=== PATIENT | female | born 1965 | race Two or more races ===

== ENCOUNTER 2020-07-29 11:17 | Inpatient (IN) | payer MEDICAID, OTHER ==
[2020-07-29] VITALS (23 sets, daily range): BP systolic 65–98; BP diastolic 30–58
[~2020-07-29] VITALS: Ht 157.5 cm; Wt 107.8 kg
[2020-07-29] MEDS ORDERED: MIDAZOLAM DRIP 50 mg/50mL 50 ML IV ONE (11:44)
[2020-07-29] MEDS: MIDAZOLAM DRIP 50 mg/50mL 50 ML IV SCH (11:48)
[2020-07-29 12:16] LABS: Urine Amorphous Crystal FEW /hpf (None Seen); Urine Bacteria FEW /hpf (None Seen); Urine Blood TRACE /uL (Negative); Urine Hyaline Cast MANY /lpf (0 - 2); Urine Mucus FEW (None Seen); Urine Specific Gravity 1.021 (1.001-1.035); Urine WBC 32 /hpf (0 - 5); Urine WBC Clumps PRESENT /hpf (None Seen)
[2020-07-29 12:20] LABS: Amphetamine Screen, Urine NEGATIVE (NEGATIVE); Barbiturate Scree,Urine NEGATIVE (NEGATIVE); Benzodiazephine Screen, Urine NEGATIVE (NEGATIVE); Cannabinoid Screen, Urine NEGATIVE (NEGATIVE); Cocaine Screen, Urine NEGATIVE (NEGATIVE); Phencyclidine Screen, Urine NEGATIVE (NEGATIVE)
[2020-07-29] MEDS: fentaNYL Drip 2500mCg/250mlNS 250 ML IV SCH (12:22)
[2020-07-29 12:27] LABS: Opiate Scree,Urine POSITIVE (NEGATIVE)
[2020-07-29] MEDS ORDERED: NOREPINEPHRINE 8 MG/250ML KIT 250 ML IV ONE (12:43)
[2020-07-29] MEDS: NOREPINEPHRINE 8 MG/250ML KIT 250 ML IV SCH (12:52)
[2020-07-29 13:58] LABS: Hematocrit 45.5 % (36.0-46.0); Mean Corpuscular Hemoglobin 31.5 pg (28.0-32.0); Mean Corpuscular Volume 95.5 fL (80.0-100.0); Platelet Count (auto) 161 10^3/uL (140-450); Red Blood Cells 4.77 10^6/uL (4.0-5.20); Red Cell Distribution Width 16.5 % (11.8-14.3); White Blood Cell 12.9 10^3/uL (4.4-10.8)
[2020-07-29 14:07] LABS: Basophils % (manual) 0 (0.0-2.0); Blast Cells 0; Eosinophils % (manual) 0 (0-7); Myelocytes % 0; Promyelocytes % 0; Reactive Lymphocytes 0
[2020-07-29 14:22] LABS: Albumin 2.8 g/dL (3.4-5.0); Anion Gap 14 (5-15); BUN/Creatinine Ratio 11.9; Blood Alcohol < 3.0 mg/dL (0-5); Blood Urea Nitrogen 57 mg/dL (7-18); Calcium 6.8 mg/dL (8.5-10.1); Carbon Dioxide 22 mmol/L (21-32); Chloride 101 mmol/L (98-107); GFR African American 12 mL/min; GFR Non-African American 10 mL/min; Glucose 96 mg/dL (74-106); Sodium 137 mmol/L (136-145)
[2020-07-29 14:24] LABS: Lactic Acid w/Reflex 4.3 mmol/L (0.4-2.0)
[2020-07-29 14:30] LABS: Acetaminophen 2.1 ug/mL (10-30); Salicylate < 1.7 mg/dL (2.8-20.0)
[2020-07-29 14:42] LABS: Potassium 5.8 mmol/L (3.5-5.1)
[2020-07-29 14:44] LABS: Band Neutrophils % (manual) 27; Lymphocytes % (manual) 8 (10.0-50.0); Metamyelocytes % 5; Monocytes % (manual) 5 (0-12)
[2020-07-29] MEDS ORDERED: CALCIUM GLUC 4.65meq/50ml D5AE 50 ML IV ONE (14:45)
[2020-07-29] MEDS ORDERED: SODIUM BICARBONATE 8.4% INJ 50ML SYRINGE IV ONE (14:45)
[2020-07-29] MEDS ORDERED: DEXTROSE (50%) 50ML SYRG IV ONE (14:45)
[2020-07-29] MEDS ORDERED: InsuLIN REG 1unit/0.01ml Soln (100units/ml) IV ONE (14:45)
[2020-07-29 14:48] LABS: Alanine Aminotransferase 8345 U/L (13-56); Alkaline Phosphatase 158 U/L (45-117); Aspartate Aminotransferase 16655 U/L (15-37); Bilirubin, Total 1.2 mg/dL (0.2-1.0); Total Protein 6.5 g/dL (6.4-8.2)
[2020-07-29] MEDS ORDERED: ENOXAPARIN SOD 100 MG/1 ML SYRINGE SC ONE (15:15)
[2020-07-29 15:57] LABS: INR 1.2 (0.9-1.15)
[2020-07-29] MEDS ORDERED: levoFLOXacin 750MG 150 ML IV ONE (16:45)
--- NOTE | 2020-07-29 17:14 | NUR ---
PICC line placement Patient/Patient significant other educated on need for PICC line placement. All risks and benefits explained and all questions and concerns addressed prior to procedure. Noted past medical history and allergies with no contraindications. INR and Plt counts within acceptable range. 5 fr PICC line inserted via RIGHT BASILIC vein using [employer] US and Tip Location System. Sterile technique with maximum barrier precautions utilized. Blood return obtained from each of THE THREE lumens and each flushed easily with NS using proper technique. 5F PICC secured with Stat-lock; biodisc and occlusive dressing applied. Stat portable chest x-ray obtained for PICC tip placement. *Baseline Arm Circumference 33CM. INTERNAL LENGTH 41 CM, EXTERNAL LENGTH 0CM. PICC lot # [id number]. Note:
--- NOTE | 2020-07-29 17:15 | NUR ---
OK to use PICC line Xray completed. OK to use PICC line . PRIMARY RN NOTIFIED
[2020-07-29] MEDS ORDERED: LIDOCAINE 1% (LOCAL ANESTH.) PF 5ml SDV ID ONE (17:30)
[2020-07-29] MEDS ORDERED: MORPHINE SULF INJ 2 MG/ML SYRINGE 1ML IV PRN (17:30)
[2020-07-29] MEDS ORDERED: NITROGLYCERIN 0.4 MG SL TAB SL PRN (17:30)
--- NOTE | 2020-07-29 18:15 | NUR ---
RECEIVED REPORT FROM ED RN
--- NOTE | 2020-07-29 18:25 | NUR ---
SPOKE WITH MD KOVACS UPDATED ON PATIENT STATUS, NEW ORDERS RECEIVED AND VENT MODE CHANGED
--- NOTE | 2020-07-29 18:55 | NUR ---
Admit to ICU from ER on vent NAT HARRELL admitted to ICU via gurney on environmental monitoring specialist, intubated and being bagged by Respiratory Therapist. Patient transfered to bed, connected to mechanical ventilator by therapist, ALMAZ at bedside. Patient connected to ICU monitoring, weighed by ronnie, oriented to Blaze Powell, primary RN, unit, ventilator and sedation.
--- NOTE | 2020-07-29 19:07 | NUR ---
received call from md mcdonald updated on patient status. new orders received
--- NOTE | 2020-07-29 19:30 | NUR ---
PLACED PAGE FOR HOSPITALIST BP 85/45 MAXED ON LEVOPHED
[2020-07-29] MEDS ORDERED: VASOPRESSIN 50 UNITS in D5W 5% 247.5 ML IV SCH (20:00)
[2020-07-29] MEDS: PHENYLEPHRINE IV 250 ML IV SCH (20:00)
--- NOTE | 2020-07-29 20:00 | NUR ---
SPOKE WITH MD KOVACS RECEIVED ORDERS FOR VASO AND JESENIA. START VASO FIRST PER
[2020-07-29] MEDS ORDERED: VASOPRESSIN 20 UNIT/ML ONE (20:03)
[2020-07-29] MEDS ORDERED: ALBUMIN 5% 250 ML IV ONE (20:30)
--- NOTE | 2020-07-29 20:37 | NUR ---
CHEPE EDDY WALKED TO LAB BY JOGRE LAINEZ
[2020-07-29] MEDS: SODIUM CHLOR 0.9% PF (SALINE LOCK) 10ML VIAL/SYR IV SCH (22:00)
[2020-07-29] MEDS: PANTOPRAZOLE 40mg/50ML NS AE 50 ML IV SCH ×2 (22:30→23:00)
[2020-07-29] MEDS ORDERED: ACETAMINOPHEN 650 mg PER 20.3 mL UD GT PRN (23:45)
[2020-07-30] VITALS (90 sets, daily range): BP systolic 82–117; BP diastolic 31–78
[2020-07-30] MEDS ORDERED: SODIUM BICARBONATE 8.4 % INJ 50ML VIAL IV ONE ×2 (00:15)
[2020-07-30] MEDS: SODIUM BICARBONATE 50ML VIAL 150 ML in SOD CHL 0.45% 1,000 ML IV SCH ×2 (00:15→16:48)
[2020-07-30] MEDS ORDERED: VASOPRESSIN 20 UNIT/ML ONE ×4 (00:32→01:37)
[2020-07-30] MEDS ORDERED: SODIUM BICARBONATE 8.4% INJ 50ML SYRINGE ONE (00:40)
[2020-07-30] MEDS ORDERED: ALBUMIN 25% 100 ML IV SCH (02:00)
[2020-07-30] MEDS: ALBUMIN 25% 100 ML IV SCH ×3 (04:00→10:03)
[2020-07-30] MEDS: PANTOPRAZOLE 40mg/50ML NS AE 50 ML IV SCH ×5 (04:00→23:53)
[2020-07-30 04:03] LABS: Basophils # (auto) 0 10 ^3/uL (0-0.2); Basophils % (auto) 0.2 % (0.0-2.0); Eosinophils # (auto) 0.8 10 ^3/uL (0-0.8); Eosinophils % (auto) 7.2 % (0.0-7.0); Hematocrit 44.1 % (36.0-46.0); Lymphocytes # (auto) 0.8 10 ^3/uL (0.4-5.4); Lymphocytes % (auto) 6.9 % (10.0-50.0); Mean Corpuscular Hemoglobin 30.9 pg (28.0-32.0); Mean Corpuscular Hgb Conc. 31.7 g/dL (32.0-36.0); Mean Corpuscular Volume 97.2 fL (80.0-100.0); Monocytes # (auto) 0.3 10 ^3/uL (0-1.3); Monocytes % (auto) 2.5 % (0.0-12.0); Neutrophils # (auto) 9.5 10 ^3/uL (1.6-8.6); Neutrophils % (auto) 83.2 % (37.0-80.0); Nucleated Red Blood Cells % 1.4 %; Platelet Count (auto) 125 10^3/uL (140-450); Red Blood Cells 4.53 10^6/uL (4.0-5.20); Red Cell Distribution Width 16.6 % (11.8-14.3); White Blood Cell 11.4 10^3/uL (4.4-10.8)
[2020-07-30] MEDS: PHENYLEPHRINE IV 250 ML IV SCH (04:20)
[2020-07-30 04:35] LABS: Albumin 2.3 g/dL (3.4-5.0); BUN/Creatinine Ratio 12.9; Bilirubin, Total 2.6 mg/dL (0.2-1.0); Calcium 6.2 mg/dL (8.5-10.1); Magnesium 2.9 mg/dL (1.6-2.6); Total Protein 5.6 g/dL (6.4-8.2)
[2020-07-30 04:50] LABS: Potassium 5.9 mmol/L (3.5-5.1)
[2020-07-30] MEDS: ALBUTEROL SULF 2.5 MG/0.5ML(0.5%) NEB SOLN NEB SCH ×5 (06:18→22:20)
--- NOTE | 2020-07-30 07:15 | NUR ---
opening note recieved report from night time babysitter rn. patient intubated sedated on versed and fent. tolerating ventilator. stating >95% on bedside monitor. hr 92 with bp 105/60 on vasopressin/esophageal vacancies rate, and norepinephrine, both maxed out. right upper arm picc line intact transfusing all medications. cooling measures in place. left ngt to suction, draining coffee ground emesis. villafana patent to gravity. for gtts and their titrations see interventions. for more information see interventions. all fall and safety precautions in place.
[2020-07-30] MEDS: VASOPRESSIN 50 UNITS in D5W 5% 247.5 ML IV SCH ×6 (07:59→21:40)
[2020-07-30] MEDS ORDERED: PHENYLEPHRINE HCL 10 MG/ML VL ONE (08:07)
[2020-07-30] MEDS: PHENYLEPHRINE INJ 40 MG in SODIUM CHL 0.9% 250 ML IV SCH ×2 (08:30→21:42)
--- NOTE | 2020-07-30 08:38 | NUR ---
md delgado at bedside updated on patient status new orders received
[2020-07-30] MEDS ORDERED: cefTRIAXone 1GM/50ML D5W 50 ML IV SCH (09:00)
--- NOTE | 2020-07-30 09:17 | NUR ---
Abnormal Abg paged fire support specialist awaiting call back. left voice mail. awaiting call back
--- NOTE | 2020-07-30 09:23 | NUR ---
received phone call from md domínguez updated on abg, no new orders received
[2020-07-30] MEDS ORDERED: PIPERACILLIN-TAZOB 3.375GM 100 ML IV SCH (10:00)
[2020-07-30] MEDS ORDERED: AZITHROMYCIN 500MG/ 250ML 250 ML IV SCH (10:00)
[2020-07-30] MEDS: SODIUM CHLOR 0.9% PF (SALINE LOCK) 10ML VIAL/SYR IV SCH ×2 (10:03→21:41)
--- NOTE | 2020-07-30 10:30 | NUR ---
md gallego at bedside updated on patient status. no new orders received
--- NOTE | 2020-07-30 10:54 | NUR ---
called family received correct password. updated on patient status. request to visit patient at bedside.
--- NOTE | 2020-07-30 11:50 | NUR ---
WOUND CARE NOTE: WOUND CARE IN TO SEE PATIENT AT THIS TIME PER WOUND CARE REQUEST. PATIENT ADMITTED TO [facility] FOR ACUTE RESPIRATORY FAILURE, GI BLEED, ELEVATED LIVER ENZYMES, AND ACUTE RENAL FAILURE. PATIENT IS INTUBATED AND SEDATED. PATIENT IS ON AN ICU LOW AIR LOSS BED. BEDSIDE NURSE NOTED SKIN INTEGRITY ISSUE UPON ADMISSION. PHOTOGRAPH TAKEN AT THAT TIME FOR REFERENCE. PATIENT ANGIE SCORE IS 10. PATIENT NOTED TO HAVE INTERTRIGINOUS RASH TO ABDOMINAL PANNUS AND BILATERAL UPPER THIGHS. ZGUARD MOISTURE BARRIER CREAM APPLIED TO AFFECTED AREAS. RECOMMEND: FREQUENT Q2HOUR REPOSITIONING CONDITION PERMITS. REDISTRIBUTE PRESSURE UTILIZING PILLOWS AND WEDGES. BID/PRN APPLICATION OF MOISTURE BARRIER CREAM. SKIN/WOUND CARE PLAN. CONTINUED MONITORING BY WOUND CARE TEAM. Addendum: 07/30/20 at 1250 by ALEXIS BLAKE RN RN Amended: Links added.
[2020-07-30] MEDS ORDERED: DEXTROSE (50%) 50ML SYRG IV PRN (12:00)
[2020-07-30] MEDS: MIDAZOLAM DRIP 50 mg/50mL 50 ML IV SCH ×2 (12:01→18:58)
[2020-07-30] MEDS: LINEZOLID 600MG/300ML 300 ML IV SCH ×2 (12:20→23:59)
[2020-07-30] MEDS: InsuLIN REG 1unit/0.01ml Soln (100units/ml) SC SCH ×2 (12:21→18:11)
[2020-07-30] MEDS: ACCU-CHEK COMFORT CURVE STRIP VI SCH ×2 (12:21→18:11)
--- NOTE | 2020-07-30 13:46 | NUR ---
md winchester at bedside updated on patient status, and abg's, no new orders received
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
--- NOTE | 2020-07-30 15:41 | NUR ---
vasopressin currently out waiting for pharmacy
[2020-07-30] MEDS ORDERED: EPINEPHrine HCL 250 ML IV ONE (15:51)
[2020-07-30] MEDS: EPINEPHrine HCL 250 ML IV SCH ×2 (16:00→20:00)
[2020-07-30] MEDS: fentaNYL Drip 2500mCg/250mlNS 250 ML IV SCH (16:44)
[2020-07-30] MEDS: NOREPINEPHRINE 8 MG/250ML KIT 250 ML IV SCH ×2 (16:48→22:32)
--- NOTE | 2020-07-30 17:05 | NUR ---
critical lab value placed page for teacher of the sight impaired for elevated trop
--- NOTE | 2020-07-30 17:22 | NUR ---
received call back from md dias updated on critical lab, no new order received.
--- NOTE | 2020-07-30 17:51 | NUR ---
code status spoke with slot manager cindi and family. patient became chemical code status with no chest compressions, no new medications, no shock.
--- NOTE | 2020-07-30 18:57 | NUR ---
RECEIVED PT ON VENT V4, VENT CONNECTED TO RED OUTLET AND O2 SOURCE ALARMS ARE SET AND AUDIBLE. AMBU BAG AND MASK AT BEDSIDE. BS ARE FINE COURSE SXD VIA ETT FOR SMALL THICK ANGELES. MED [employer] [place] GIVEN INLINE WITHOUT ADVERSE REACTION NOTED. WILL CONTINUE TO MONITOR.
--- NOTE | 2020-07-30 19:30 | NUR ---
REPORT RECEIVED, ASSUMED CARE.
[2020-07-30] MEDS ORDERED: PIPERACILLIN-TAZOB 2.25GM 50 ML IV SCH (22:00)
[2020-07-31] VITALS (7 sets, daily range): BP systolic 87–107; BP diastolic 48–59
[2020-07-31] MEDS: InsuLIN REG 1unit/0.01ml Soln (100units/ml) SC SCH (00:01)
[2020-07-31] MEDS: ACCU-CHEK COMFORT CURVE STRIP VI SCH (00:01)
--- NOTE | 2020-07-31 00:28 | NUR ---
CALLBACK HOSPITALIST: GAVE UPDATE AND BLOOD SUGAR RESULTS, NO NEW ORDERS RECEIVED. WILL CONT TO MONITOR AND GIVE IN REPORT.
[2020-07-31] MEDS: VASOPRESSIN 50 UNITS in D5W 5% 247.5 ML IV SCH (00:49)
[2020-07-31] MEDS: PHENYLEPHRINE INJ 40 MG in SODIUM CHL 0.9% 250 ML IV SCH (00:50)
--- NOTE | 2020-07-31 01:43 | NUR ---
[facility]: SPEAKING TO GLADYS REGARDING PT, PT CODE 01:46, WILL CALLBACK.
--- NOTE | 2020-07-31 01:46 | NUR ---
PT ASYSTOLE, CODE BLUE CALLED. PT CHEM CODE.
--- NOTE | 2020-07-31 01:47 | NUR ---
EPINEPHRINE IVP GIVEN, PT STILL ASYSTOLE, ALL SEDATION STOPPED.
--- NOTE | 2020-07-31 01:49 | NUR ---
2ND EPINEPHRINE IVP GIVEN, NO CHANGE, PT STILL ASYSTOLE. PT CHEM CODE PER FAMILY WISHES. HOSPITALIST NOTIFIED.
--- NOTE | 2020-07-31 01:50 | NUR ---
DOPPLER USED, NO PULSE NOTED, PT STILL ASYSTOLE, CODE STOPPED, PT PRONOUNCED.
[2020-07-31] MEDS: ALBUTEROL SULF 2.5 MG/0.5ML(0.5%) NEB SOLN NEB SCH (02:00)
--- NOTE | 2020-07-31 02:01 | NUR ---
CALLED DAUGHTER NAT MIRAMONTES [phone], NO ANSWER, LEFT MESSAGE FOR CALLBACK.
--- NOTE | 2020-07-31 02:04 | NUR ---
[facility]: CASE #[id number]
--- NOTE | 2020-07-31 02:35 | NUR ---
CALLED [employer], [employer] OFFICE WILL NOTIFY THEM TO CALLBACK.
--- NOTE | 2020-07-31 02:41 | NUR ---
2ND CALL OUT TO DAUGHTER, NO ANSWER, 2ND MESSAGE LEFT, MARKED URGENT.
--- NOTE | 2020-07-31 02:47 | NUR ---
SUPERVISOR TELEPHONE INFORMATION SPOKE WITH IRMA MUKHERJEE, BODY RELEASED, NO CASE # ISSUED.
--- NOTE | 2020-07-31 03:10 | NUR ---
CALLED MD BRAUN EXCHANGE, LEFT MESSAGE WITH PT .
--- NOTE | 2020-07-31 04:05 | NUR ---
[facility] CALLBACK, FAMILY HAS BEEN NOTIFIED AND ARE ON THEIR WAY IN.
--- NOTE | 2020-07-31 04:40 | NUR ---
FAMILY HERE TO SEE THEIR LOVED ONE.
--- NOTE | 2020-07-31 05:21 | NUR ---
FAMILY PICKED MORTUARY ELI[facility], . CALLED MORTUARY, NO ANSWER, LEFT MESSAGE. WILL NOTIFY TL AND HOUSE SUP, WHEN FAMILY FINISHED VISITING THEIR LOVED ONE.
--- NOTE | 2020-07-31 05:24 | NUR ---
ALL PT BELONGINGS GIVEN TO RAJAN JOHNS AT BEDSIDE.
--- NOTE | 2020-07-31 05:49 | NUR ---
EXPLAINED TO FAMILY THAT THEIR LOVED WOULD HAVE TO PROBABLY GO TO OUR [place] UNTIL THE MORTUARY COULD BE CONTACTED. FAMILY RESPONDED WITH UNDERSTANDING AND COMPLIANCE.
--- NOTE | 2020-07-31 09:36 | NUR ---
CALL REC'D FROM ELIAS MARINO RELEASE TO BE FAXED AND OFFSET MACHINE OPERATOR TODAY
== END 2020-07-31 01:50 | disposition expired | DRG 720 ==
LOC: EDBD 11:17 → ER 11:17 → TELE 11:18 → ICU WEST 19:09
PROVIDERS: ADMIT Nurse Practitioner; ATTEND Nurse Practitioner
PROC: 5A1945Z Respiratory Ventilation, 24-96 Consecutive Hours (ICD-10-PCS; principal; 2020-07-29)
PROC: 0BH17EZ Insertion of Endotracheal Airway into Trachea, Via Natural or Artificial Opening (ICD-10-PCS; 2020-07-29)
PROC: 02HV33Z Insertion of Infusion Device into Superior Vena Cava, Percutaneous Approach (ICD-10-PCS; 2020-07-29)
DX: A41.9 Sepsis, unspecified organism (principal); J96.01 Acute respiratory failure with hypoxia; R65.21 Severe sepsis with septic shock; J96.02 Acute respiratory failure with hypercapnia; J18.9 Pneumonia, unspecified organism; I46.9 Cardiac arrest, cause unspecified; K27.4 Chronic or unspecified peptic ulcer, site unspecified, with hemorrhage; E87.5 Hyperkalemia; E66.01 Morbid (severe) obesity due to excess calories; N39.0 Urinary tract infection, site not specified; G82.20 Paraplegia, unspecified; Z20.828 Contact with and (suspected) exposure to other viral communicable diseases; D64.9 Anemia, unspecified; E11.22 Type 2 diabetes mellitus with diabetic chronic kidney disease; E83.41 Hypermagnesemia; F17.200 Nicotine dependence, unspecified, uncomplicated; G89.29 Other chronic pain; G95.9 Disease of spinal cord, unspecified; N17.9 Acute kidney failure, unspecified; E11.40 Type 2 diabetes mellitus with diabetic neuropathy, unspecified; R77.8 Other specified abnormalities of plasma proteins; I13.0 Hypertensive heart and chronic kidney disease with heart failure and stage 1 through stage 4 chronic kidney disease, or unspecified chronic kidney disease; I50.20 Unspecified systolic (congestive) heart failure; J44.0 Chronic obstructive pulmonary disease with (acute) lower respiratory infection; K75.89 Other specified inflammatory liver diseases; K92.0 Hematemesis; N18.9 Chronic kidney disease, unspecified; Z66 Do not resuscitate; Z82.49 Family history of ischemic heart disease and other diseases of the circulatory system; Z83.3 Family history of diabetes mellitus
CPT/HCPCS: 36415; 36569; 36600; 70450; 71045; 80053; 80307; 80320; 80329; 81001; 82010; 82805; 82962; 83036; 83605; 83735; 83880; 84443; 84484; 85007; 85025; 85027; 85610; 87040; 87070; 87077; 87081; 87086; 87186; 87205; 87426; 93005; 93306; 94002; 94003; 94640; 95819; 96365; 96375; 99291; A4618; G0378; J0171; J0610; J1815; J1956; J2250; J2543; J7060; P9047